=== PATIENT | male | born 1960 | race African-American/Black ===

== ENCOUNTER 2018-11-12 08:21 | Emergency (ER) | payer MEDICARE ==
[~2018-11-12] VITALS: Ht 188 cm; Wt 77.1 kg
[~2018-11-12 08:21] MED LIST: AMBIEN10 MG PO; HUMALOG100 UNIT/2 SQ; MUPIROCIN22 GM TOP; NOVOLOG MI100 UNITS/ SQ; RESTORIL15 MG PO; ULTRAM 50MG50 MG PO; Z LABETALOL HCL PO; Z MINOXIDIL PO; Z.0.LANTUS 3ML100 UN SQ; Z.0.RENVELA800 MG PO; Z.0.TEMAZEPAM15 MG PO; [UNRECOGNIZED DRUG - OTHER] PO
--- OUTSIDE RECORDS SUMMARY | 2018-11-12 08:25 | XMS REPORT ---
Author Author [facility] Address Unknown Phone Unavailable Care Team Providers Care Client Executive Name Role Phone Unavailable Unavailable Payers Payer Name Policy Type Policy Number Effective Date Expiration Date Problems This patient has no known problems. Allergies, Adverse Reactions, Alerts Allergy Name Allergy Type Status Severity Reaction(s) Onset Date Inactive Date Treating Clinician Comments No Known Allergies DA Active U 2015-12-24 00:00:00 Medications This patient has no known medications. Results Test Description Test Time Test Comments Text Results Atomic Results Result Comments COMPREHENSIVE METABOLIC PANEL 2018-08-01 13:26:00 SODIUM (test code=NA) 138 mmol/L 136-145 POTASSIUM (test code=K) 3.8 mmol/L 3.5-5.1 CHLORIDE (test code=CL) 99.0 mmol/L 98-107 CARBON DIOXIDE (test code=CO2) 31.0 mmol/L 21-32 ANION GAP (test code=GAP) 11.8 10-20 GLUCOSE (test code=GLU) 114 mg/dL 74-106 BLOOD UREA NITROGEN (test code=BUN) 26 mg/dL 7-18 GLOMERULAR FILTRATION RATE (test code=GFR) 13 mL/min >=60 Estimated GFR by using Modified MDRD formula.Chronic kidney disease is defined as either kidney damageor GFR <60 mL/min/1.73 m2 for >3 months. CREATININE (test code=CREAT) 5.50 mg/dL 0.7-1.3 BUN/CREATININE RATIO (test code=BUN/CREA) 4.7 10-20 TOTAL PROTEIN (test code=PROT) 8.3 gram/dL 6.4-8.2 ALBUMIN (test code=ALB) 3.9 g/dL 3.4-5.0 GLOBULIN (test code=GLOB) 4.4 gram/dL 2.7-4.2 ALBUMIN/GLOBULIN RATIO (test code=A/G) 0.9 0.75-1.50 CALCIUM (test code=CA) 8.6 mg/dL 8.5-10.1 BILIRUBIN TOTAL (test code=BILT) 0.50 mg/dL 0.0-1.0 SGOT/AST (test code=AST) 23 IUnit/L 15-37 SGPT/ALT (test code=ALT) 23 IUnit/L 12-78 ALKALINE PHOSPHATASE TOTAL (test code=ALKP) 162 IUnit/L 45-117 Note change in reference range due to change in reagent. [id number] 13:26:00* Test Item Value Reference Range Comments MAGNESIUM (test code=MAG) 2.5 mg/dL 1.8-2.4 COMPREHENSIVE METABOLIC [id number] 13:10:00* Test Item Value Reference Range Comments SODIUM (test code=NA) 138 mmol/L 136-145 POTASSIUM (test code=K) 3.8 mmol/L 3.5-5.1 CHLORIDE (test code=CL) 99.0 mmol/L 98-107 CARBON DIOXIDE (test code=CO2) mmol/L 21-32 ANION GAP (test code=GAP) 10-20 GLUCOSE (test code=GLU) mg/dL 74-106 BLOOD UREA NITROGEN (test code=BUN) mg/dL 7-18 GLOMERULAR FILTRATION RATE (test code=GFR) mL/min >=60 CREATININE (test code=CREAT) mg/dL 0.7-1.3 BUN/CREATININE RATIO (test code=BUN/CREA) 10-20 TOTAL PROTEIN (test code=PROT) gram/dL 6.4-8.2 ALBUMIN (test code=ALB) g/dL 3.4-5.0 GLOBULIN (test code=GLOB) gram/dL 2.7-4.2 ALBUMIN/GLOBULIN RATIO (test code=A/G) 0.75-1.50 CALCIUM (test code=CA) mg/dL 8.5-10.1 BILIRUBIN TOTAL (test code=BILT) mg/dL 0.0-1.0 SGOT/AST (test code=AST) IUnit/L 15-37 SGPT/ALT (test code=ALT) IUnit/L 12-78 ALKALINE PHOSPHATASE TOTAL (test code=ALKP) IUnit/L 45-117 [id number] 13:10:00* Test Item Value Reference Range Comments MAGNESIUM (test code=MAG) mg/dL 1.8-2.4 CBC W/AUTO [id number] 11:49:00* Test Item Value Reference Range Comments WHITE BLOOD CELL (test code=WBC) 3.3 K/mm3 4.5-12.5 RED BLOOD CELL (test code=RBC) 3.10 mill/mm3 4.0-5.8 HEMOGLOBIN (test code=HGB) 9.7 gram/dL 13.0-17.5 HEMATOCRIT (test code=HCT) 29.1 % 42.0-52.0 MEAN CELL VOLUME (test code=MCV) 93.9 fL 80-98 MEAN CELL HGB (test code=MCH) 31.3 picogram 27.0-33.0 MEAN CELL HGB CONCETRATION (test code=MCHC) 33.3 gram/dL 33.0-36.0 RED CELL DISTRIBUTION WIDTH (test code=RDW) 15.1 % 11.6-16.2 RED CELL DISTRIBUTION WIDTH SD (test code=RDW-SD) 51.7 fL 37.0-51.0 PLATELET COUNT (test code=PLT) 112 K/mm3 150-450 MEAN PLATELET VOLUME (test code=MPV) 10.4 fL 6.7-11.0 NEUTROPHIL % (test code=NT%) 48.7 % 39.0-69.0 IMMATURE GRANULOCYTE % (test code=IG%) 0.3 % 0.0-5.0 LYMPHOCYTE % (test code=LY%) 19.1 % 25.0-55.0 MONOCYTE % (test code=MO%) 16.4 % 0.0-10.0 EOSINOPHIL % (test code=EO%) 14.0 % 0.0-5.0 BASOPHIL % (test code=BA%) 1.5 % 0.0-1.0 NUCLEATED RBC % (test code=NRBC%) 0.0 % 0-0 NEUTROPHIL # (test code=NT#) 1.60 K/mm3 1.8-7.7 IMMATURE GRANULOCYTE # (test code=IG#) 0.01 x10 3/uL 0-0.03 LYMPHOCYTE # (test code=LY#) 0.63 K/mm3 1.0-5.0 MONOCYTE # (test code=MO#) 0.54 K/mm3 0-0.8 EOSINOPHIL # (test code=EO#) 0.46 K/mm3 0.0-0.5 BASOPHIL # (test code=BA#) 0.05 K/mm3 0.0-0.2 NUCLEATED RBC # (test code=NRBC#) 0.00 K/mm3 0.0-0.1 MANUAL DIFF REQUIRED (test code=MDIFF) NO
--- NOTE | 2018-11-12 09:23 | NUR ---
NASREEN IN TRIAGE FOR RE-EVAL AND DISCUSSING THE CURRENT PLAN OF CARE WITH PATIENT,VERBALIZED UNDERSTANDING. CLEAN GAUZE APPLIED TO RIGHT UPPER GUM, NO ACTIVE BLEEDING NOTED.
== END 2018-11-12 09:32 | disposition home or self-care (01) ==
LOC: ER 08:21
DX: K05.219 Aggressive periodontitis, localized, unspecified severity (principal)
CPT/HCPCS: 99283

== ENCOUNTER 2019-07-19 08:35 | Inpatient (IN) | payer MEDICARE, OTHER ==
[~2019-07-19] VITALS: Ht 162.6 cm; Wt 77.1 kg
--- OUTSIDE RECORDS SUMMARY | 2019-07-19 08:39 | XMS REPORT | Continuity of Care Document ---
Author Author [facility] t Organization [facility] Address [address] [place] [address] Phone Unavailable Care Team Providers Care Public Affairs Manager Name Role Phone NONSTAFF PCP Unavailable Payers Payer Name Policy Type Policy Number Effective Date Expiration Date Maureen hilton Medicare A & B [id number] 2005 00:00:00 C [facility] Problems This patient has no known problems. Allergies, Adverse Reactions, Alerts Allergy Name Allergy Type Status Severity Reaction(s) Onset Date Inacti ve Date Treating Clinician Comments Source No Known Allergies DA Active U 2015-12-24 00:00:00 [facility] Medications Ordered Medication Name Filled Medication Name Start Date Stop Da te Current Medication? Ordering Clinician Indication Dosage Frequency Signature (SIG) Comments Components Source Insulin Aspart (Novolog Mix 70-30 Vial) 100 Units/Ml M l Insulin Aspart (Novolog Mix 70-30 Vial) 100 Units/Ml Ml Yes As Needed as needed for High Blood Sugar [facility] Insulin Glargine (Lantus 3ML Pen) 100 Units/1 Ml Inj I nsulin Glargine (Lantus 3ML Pen) 100 Units/1 Ml Inj Yes 22 Bedtime [facility] Labetalol Hcl 300 Mg Tablet Labetalol Hcl 300 Mg Tablet Yes 300 Three Times A Day [facility] Minoxidil 10 Mg Tablet Minoxidil 10 Mg Tablet Yes 10 Three Times A Day [facility] Mupirocin 22 Gm Oint...g. Mupirocin 22 Gm Oint...g. Yes 22 Daily [facility] Nifedipine (Procardia Xl) 60 Mg Tab.osm.24 Nifedipine (Procardia Xl) 60 Mg Tab.osm.24 Yes 60 Three Times A Day [facility] Temazepam 15 Mg Capsule Temazepam 15 Mg Capsule Yes 15 Bedtime [facility] Temazepam (Restoril) 15 Mg Capsule Temazepam (Restoril) 15 Mg Capsule Yes 15 Bedtime [facility] Tramadol Hcl (Ultram 50MG*) 50 Mg Tab Tramadol Hcl (Ultram 50MG*) 5 0 Mg Tab Yes 50 Three Times A Day [facility] Zolpidem Tartrate (Ambien) 10 Mg Tablet Zolpidem Tartrate (A mbien) 10 Mg Tablet Yes 10 Bedtime [facility] Insulin Lispro (Humalog) 100 Unit/1 Ml Cartridge, 5 Un it Sub-Q Insulin Lispro (Humalog) 100 Unit/1 Ml Cartridge, 5 Unit Sub-Q 2015-03-07 00:00:00 No 5 Three Times A Day [facility] Sevelamer Carbonate (Renvela) 800 Mg Tablet, 800 Mg Or al Sevelamer Carbonate (Renvela) 800 Mg Tablet, 800 Mg Oral 2015-03-07 00:00:00 No 800 Three Times A Day [facility] Procedures This patient has no known procedures. Encounters Start Date/Time End Date/Time [facility]counter [facility] ID Source 2018-11-12 08:21:00 2018-11-12 09:32:00 Departed Emergency Room [facility] [id number] [facility] Results Test Description Test Time Test Comments Results Result Comments Source BASIC METABOLIC PANEL 2018-11-17 06:35:00 Test Item SODIUM (test code = NA) 142 mmol/L 136-145 N POTASSIUM (test code = K) 4.3 mmol/L 3.5-5.1 N CHLORIDE (test code = CL) 102.0 mmol/L 98-107 N CARBON DIOXIDE (test code = CO2) 30.0 mmol/L 21-32 N ANION GAP (test code = GAP) 14.3 10-20 N GLUCOSE (test code = GLU) 176 mg/dL 74-106 H BLOOD UREA NITROGEN (test code = BUN) 27 mg/dL 7-18 H GLOMERULAR FILTRATION RATE (test code = GFR) 12 mL/min >=60 Estimated GFR by using Modified MDRD formula.Chronic kidney disease is defined as either kidney damageor GFR <60 mL/min/1.73 m2 for >3 months. CREATININE (test code = CREAT) 6.00 mg/dL 0.7-1.3 H BUN/CREATININE RATIO (test code = BUN/CREA) 4.5 10-20 L CALCIUM (test code = CA) 8.4 mg/dL 8.5-10.1 L BASIC METABOLIC [id number] 06:33:00* Test Item Value Reference Range Interpretation Comments SODIUM (test code = NA) 142 mmol/L 136-145 N POTASSIUM (test code = K) 4.3 mmol/L 3.5-5.1 N CHLORIDE (test code = CL) 102.0 mmol/L 98-107 N CARBON DIOXIDE (test code = CO2) mmol/L 21-32 ANION GAP (test code = GAP) 10-20 GLUCOSE (test code = GLU) mg/dL 74-106 BLOOD UREA NITROGEN (test code = BUN) mg/dL 7-18 GLOMERULAR FILTRATION RATE (test code = GFR) mL/min >=60 CREATININE (test code = CREAT) mg/dL 0.7-1.3 BUN/CREATININE RATIO (test code = BUN/CREA) 10-20 CALCIUM (test code = CA) 8.4 mg/dL 8.5-10.1 L PROTHROMBIN [id number] 06:25:00* Test Item Value Reference Range Interpretation Comments PROTHROMBIN TIME PATIENT (test code = PTP) 12.7 seconds 9.0-14.0 N INTERNATIONAL NORMAL RATIO (test code = INR) 1.1 0.8-1.2 N The therapeutic range for oral anticoagulant therapy formost indications is an international normalized ratio (INR)of between 2.0 and 3.0. The recommended therapeutic INRrange for various clinical situations is listed below: Clinical Situation INR range Pulmonary e mbolism treatment (2.0-3.0)Venous thrombosis treatmentVenous thrombosis prophylaxis (high risk surgery)Prevention of systemic embolism from: Acute myocardial infarction Valvular heart disease Atrial fibrillation Mechanical prosthetic heart valves (2.5-3.5) IS PATIENT ON ANTICOAGULANTS? YLIST ANTICOAGULANTS xareltoTHROMBOPLASTIN TIME [id number] 06:25:00* Test Item Value Reference Range Interpretation Comments THROMBOPLASTIN TIME PARTIAL (test code = PTT) 43.4 seconds 25.0-36. 5 H IS PATIENT ON ANTICOAGULANTS? YLIST ANTICOAGULANTS xareltoCBC W/AUTO DIFF 2018-11-17 06:22:00* Test Item Value Reference Range Interpretation Comments WHITE BLOOD CELL (test code = WBC) 2.5 K/mm3 4.5-12.5 L RED BLOOD CELL (test code = RBC) 3.58 mill/mm3 4.0-5.8 L HEMOGLOBIN (test code = HGB) 10.9 gram/dL 13.0-17.5 L HEMATOCRIT (test code = HCT) 33.4 % 42.0-52.0 L MEAN CELL VOLUME (test code = MCV) 93.3 fL 80-98 N MEAN CELL HGB (test code = MCH) 30.4 picogram 27.0-33.0 N MEAN CELL HGB CONCETRATION (test code = MCHC) 32.6 gram/dL 33.0-36. 0 L RED CELL DISTRIBUTION WIDTH (test code = RDW) 15.9 % 11.6-16. 2 N RED CELL DISTRIBUTION WIDTH SD (test code = RDW-SD) 53.8 fL 37 .0-51.0 H PLATELET COUNT (test code = PLT) 106 K/mm3 150-450 L MEAN PLATELET VOLUME (test code = MPV) 11.1 fL 6.7-11.0 H NEUTROPHIL % (test code = NT%) 43.8 % 39.0-69.0 N IMMATURE GRANULOCYTE % (test code = IG%) 0.0 % 0.0-5.0 N LYMPHOCYTE % (test code = LY%) 26.5 % 25.0-55.0 N MONOCYTE % (test code = MO%) 19.7 % 0.0-10.0 H EOSINOPHIL % (test code = EO%) 8.0 % 0.0-5.0 H BASOPHIL % (test code = BA%) 2.0 % 0.0-1.0 H NUCLEATED RBC % (test code = NRBC%) 0.0 % 0-0 N NEUTROPHIL # (test code = NT#) 1.09 K/mm3 1.8-7.7 L IMMATURE GRANULOCYTE # (test code = IG#) 0.00 x10 3/uL 0-0.03 N LYMPHOCYTE # (test code = LY#) 0.66 K/mm3 1.0-5.0 L MONOCYTE # (test code = MO#) 0.49 K/mm3 0-0.8 N EOSINOPHIL # (test code = EO#) 0.20 K/mm3 0.0-0.5 N BASOPHIL # (test code = BA#) 0.05 K/mm3 0.0-0.2 N NUCLEATED RBC # (test code = NRBC#) 0.00 K/mm3 0.0-0.1 N MANUAL DIFF REQUIRED (test code = MDIFF) NO COMPREHENSIVE METABOLIC [id number] 13:26:00* Test Item Value Reference Range Interpretation Comments SODIUM (test code = NA) 138 mmol/L 136-145 N POTASSIUM (test code = K) 3.8 mmol/L 3.5-5.1 N CHLORIDE (test code = CL) 99.0 mmol/L 98-107 N CARBON DIOXIDE (test code = CO2) 31.0 mmol/L 21-32 N ANION GAP (test code = GAP) 11.8 10-20 N GLUCOSE (test code = GLU) 114 mg/dL 74-106 H BLOOD UREA NITROGEN (test code = BUN) 26 mg/dL 7-18 H GLOMERULAR FILTRATION RATE (test code = GFR) 13 mL/min >=60 Estimated GFR by using Modified MDRD formula.Chronic kidney disease is defined as either kidney damageor GFR <60 mL/min/1.73 m2 for >3 months. CREATININE (test code = CREAT) 5.50 mg/dL 0.7-1.3 H BUN/CREATININE RATIO (test code = BUN/CREA) 4.7 10-20 L TOTAL PROTEIN (test code = PROT) 8.3 gram/dL 6.4-8.2 H ALBUMIN (test code = ALB) 3.9 g/dL 3.4-5.0 N GLOBULIN (test code = GLOB) 4.4 gram/dL 2.7-4.2 H ALBUMIN/GLOBULIN RATIO (test code = A/G) 0.9 0.75-1.50 N CALCIUM (test code = CA) 8.6 mg/dL 8.5-10.1 N BILIRUBIN TOTAL (test code = BILT) 0.50 mg/dL 0.0-1.0 N SGOT/AST (test code = AST) 23 IUnit/L 15-37 N SGPT/ALT (test code = ALT) 23 IUnit/L 12-78 N ALKALINE PHOSPHATASE TOTAL (test code = ALKP) 162 IUnit/L 45-117 H Note change in reference range due to change in reagent. [id number] 13:26:00* Test Item Value Reference Range Interpretation Comments MAGNESIUM (test code = MAG) 2.5 mg/dL 1.8-2.4 H COMPREHENSIVE METABOLIC [id number] 13:10:00* Test Item Value Reference Range Interpretation Comments SODIUM (test code = NA) 138 mmol/L 136-145 N POTASSIUM (test code = K) 3.8 mmol/L 3.5-5.1 N CHLORIDE (test code = CL) 99.0 mmol/L 98-107 N CARBON DIOXIDE (test code = CO2) mmol/L 21-32 ANION GAP (test code = GAP) 10-20 GLUCOSE (test code = GLU) mg/dL 74-106 BLOOD UREA NITROGEN (test code = BUN) mg/dL 7-18 GLOMERULAR FILTRATION RATE (test code = GFR) mL/min >=60 CREATININE (test code = CREAT) mg/dL 0.7-1.3 BUN/CREATININE RATIO (test code = BUN/CREA) 10-20 TOTAL PROTEIN (test code = PROT) gram/dL 6.4-8.2 ALBUMIN (test code = ALB) g/dL 3.4-5.0 GLOBULIN (test code = GLOB) gram/dL 2.7-4.2 ALBUMIN/GLOBULIN RATIO (test code = A/G) 0.75-1.50 CALCIUM (test code = CA) mg/dL 8.5-10.1 BILIRUBIN TOTAL (test code = BILT) mg/dL 0.0-1.0 SGOT/AST (test code = AST) IUnit/L 15-37 SGPT/ALT (test code = ALT) IUnit/L 12-78 ALKALINE PHOSPHATASE TOTAL (test code = ALKP) IUnit/L 45-117 [id number] 13:10:00* Test Item Value Reference Range Interpretation Comments MAGNESIUM (test code = MAG) mg/dL 1.8-2.4 CBC W/AUTO [id number] 11:49:00* Test Item Value Reference Range Interpretation Comments WHITE BLOOD CELL (test code = WBC) 3.3 K/mm3 4.5-12.5 L RED BLOOD CELL (test code = RBC) 3.10 mill/mm3 4.0-5.8 L HEMOGLOBIN (test code = HGB) 9.7 gram/dL 13.0-17.5 L HEMATOCRIT (test code = HCT) 29.1 % 42.0-52.0 L MEAN CELL VOLUME (test code = MCV) 93.9 fL 80-98 N MEAN CELL HGB (test code = MCH) 31.3 picogram 27.0-33.0 N MEAN CELL HGB CONCETRATION (test code = MCHC) 33.3 gram/dL 33.0-36. 0 N RED CELL DISTRIBUTION WIDTH (test code = RDW) 15.1 % 11.6-16. 2 N RED CELL DISTRIBUTION WIDTH SD (test code = RDW-SD) 51.7 fL 37 .0-51.0 H PLATELET COUNT (test code = PLT) 112 K/mm3 150-450 L MEAN PLATELET VOLUME (test code = MPV) 10.4 fL 6.7-11.0 N NEUTROPHIL % (test code = NT%) 48.7 % 39.0-69.0 N IMMATURE GRANULOCYTE % (test code = IG%) 0.3 % 0.0-5.0 N LYMPHOCYTE % (test code = LY%) 19.1 % 25.0-55.0 L MONOCYTE % (test code = MO%) 16.4 % 0.0-10.0 H EOSINOPHIL % (test code = EO%) 14.0 % 0.0-5.0 H BASOPHIL % (test code = BA%) 1.5 % 0.0-1.0 H NUCLEATED RBC % (test code = NRBC%) 0.0 % 0-0 N NEUTROPHIL # (test code = NT#) 1.60 K/mm3 1.8-7.7 L IMMATURE GRANULOCYTE # (test code = IG#) 0.01 x10 3/uL 0-0.03 N LYMPHOCYTE # (test code = LY#) 0.63 K/mm3 1.0-5.0 L MONOCYTE # (test code = MO#) 0.54 K/mm3 0-0.8 N EOSINOPHIL # (test code = EO#) 0.46 K/mm3 0.0-0.5 N BASOPHIL # (test code = BA#) 0.05 K/mm3 0.0-0.2 N NUCLEATED RBC # (test code = NRBC#) 0.00 K/mm3 0.0-0.1 N MANUAL DIFF REQUIRED (test code = MDIFF) NO
--- NOTE | 2019-07-19 09:00 | Emergency Department Note ---
History of Present Illnes History of Present Illness Chief Complaint: Abdominal Complaints History of Present Illness This is a 59 year old male arrives to the ED with complaints of bright red blood per rectum. Patient states his hemoglobin dropped from 7.7 early in June to 7.0 noted on July 05. Patient states his PCP told him to come to the emergency department for further workup and management. Patient states he has a history of a lower GI bleed in 2007 for which she got a blood transfusion 4. Patient does admit to mild left lower quadrant abdominal pain. Patient is on hemodialysis secondary to ESRD, Tuesday and Tuesday. Patient's last colonoscopy was in . Historian: Patient Arrival Mode: Car Computer Hardware Developer Required: No Onset (how long ago): week(s) Radiation: non-radiation Severity: mild Onset quality: gradual Duration (how long): week(s) Timing of current episode: constant Progression: worsening Chronicity: recurrent Relieving factors: none Past Medical/Family History Physician Review I have reviewed the patient's past medical and family history. Any updates have been documented here. 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 Social History Smoking Cessation: Never Smoker Alcohol Use: None Any Illegal Drug Use: No TB Exposure/Symptoms: No Physically hurt or threatened: No Family History Family history of heart diseas: Yes Other Last Tetanus: UNKNOWN Any Pre-Existing Lines (PICC,: Yes Is patient up to date on immun: Yes Review of Systems Review of Systems Constitutional: no symptoms EENTM: no symptoms Cardiovascular: no symptoms Respiratory: no symptoms Gastrointestinal: as per HPI, abdominal pain Genitourinary: no symptoms Musculoskeletal: no symptoms Neurological: as per HPI Psychological: no symptoms Endocrine: no symptoms Hematological/Lymphatic: no symptoms Review of other systems All other systems reviewed and negative. Physical Exam Related Data Allergies: Coded Allergies: No Known Allergies (Unverified , 07/30/11) Triage Vital Signs Vital Signs Date Time Temp Pulse Resp B/P (MAP) Pulse Ox O2 Delivery O2 Flow Rate FiO2 07/19/19 08:46 98.4 71 16 137/66 95 Vital signs reviewed: Yes Physical Exam CONSTITUTIONAL Constitutional: well-developed, well-nourished, obese, other (inhaled, dry mucosa) HENT HENT: normocephalic, atraumatic, nose normal HENT L/R: left ext ear normal, right ext ear normal EYES Eyes: PERRL, conjunctivae normal NECK Neck: ROM normal PULMONARY Pulmonary: effort normal, breath sounds normal CARDIOVASCULAR Cardiovascular: regular rhythm, heart sounds normal, capillary refill normal, normal rate GASTROINTESTINAL Abdominal: soft, nontender, bowel sounds normal, other (mild left lower quadrant tenderness) GENITOURINARY Genitourinary: exam deferred SKIN Skin: warm, dry MUSCULOSKELETAL Musculoskeletal: ROM normal NEUROLOGICAL Neurological: alert, oriented x 3, no gross motor or sensory deficits PSYCHOLOGICAL Psychological: mood/affect normal, judgement normal Critical Care Time Subsequent provider I assumed direction of critical care for this patient from another provider of my specialty. Assessment & Plan Reassessment Reassessment 59-year-old male that we do generalized malaise and weakness. Noted to have a drop in hemoglobin, history of bright red blood per rectum. Patient hospital admission for further workup of a lower GI bleed. Assessment & Plan Final Impression: (1) LEFT SIDED COLITIS WITH RECTAL BLEEDING Assessment & Plan cbc, cmp serial Hb/Hct GI Consult Depart Disposition: ADMITTED Last Vital Signs Date Time Temp Pulse Resp B/P (MAP) Pulse Ox O2 Delivery O2 Flow Rate FiO2 07/19/19 08:46 98.4 71 16 137/66 95 Home Meds Reported Medications Insulin Aspart (NOVOLOG MIX 70-30 VIAL) 100 Units/Ml Ml, SQ PRN PRN for HIGH BLOOD SUGAR 03/07/15 Tramadol Hcl* (ULTRAM 50MG*) 50 Mg Tab, 50 MG PO TID, TAB 03/07/15 Temazepam (RESTORIL) 15 Mg Capsule, 15 MG PO HS, #30 TAB 03/07/15 Mupirocin (MUPIROCIN) 22 Gm Oint...g., 22 GM TOP DAILY, EACH 03/07/15 Zolpidem Tartrate (AMBIEN) 10 Mg Tablet, 10 MG PO HS, TAB 03/07/15 Temazepam (Temazepam) 15 Mg Capsule, 15 MG PO BEDTIME 07/30/11 Insulin Glargine (Lantus 3ML Pen) 100 Units/1 Ml Inj, 22 UNITS SQ BEDTIME 07/30/11 Nifedipine (Procardia Xl) 60 Mg Tab.osm.24, 60 MG PO TID 07/30/11 Labetalol Hcl (Labetalol Hcl) 300 Mg Tablet, 300 MG PO TID 07/30/11 Minoxidil (Minoxidil) 10 Mg Tablet, 10 MG PO TID 07/30/11 MAURISIO THOMAS, Jul 19, 2019 09:00
--- NOTE | 2019-07-19 09:10 | NUR ---
blood to lab;blood bank/banded; covid done
[2019-07-19 09:32] LABS: BASOPHILS % 1.4 % (0.0-1.0); EOSINOPHILS # (AUTO) 0.1 (0.0-0.4); EOSINOPHILS % 4.2 % (0.0-6.0); HEMATOCRIT 26.4 % (38.2-49.6); HEMOGLOBIN 8.5 g/dL (14.0-18.0); LYMPHOCYTES # (AUTO) 0.6 (1.0-3.2); LYMPHOCYTES % 19.8 % (18.0-39.1); MEAN CORPUSCULAR HGB CONC 32.2 g/dL (31-35); MEAN CORPUSCULAR VOLUME 99.2 fL (81-99); MONOCYTES # (AUTO) 0.6 (0.2-0.8); MONOCYTES % 22.3 % (4.4-11.3); NEUTROPHILS # (AUTO) 1.5 (2.1-6.9); NEUTROPHILS % 51.9 % (38.7-80.0); PLATELET COUNT 129 x10e3/uL (140-360); RED BLOOD COUNT 2.66 x10e6/uL (4.3-5.7); RED CELL DISTRIBUTION WIDTH 16.3 % (11.7-14.4)
[2019-07-19 09:55] LABS: ALBUMIN 3.7 g/dL (3.5-5.0); ANION GAP 18.7 mmol/L (8-16); CALCIUM 9.3 mg/dL (8.4-10.2); CREATININE, SERUM 10.64 mg/dL (0.72-1.25); POTASSIUM 4.7 mmol/L (3.5-5.1)
[2019-07-19 09:56] LABS: INR 0.96; PROTHROMBIN TIME 13.3 seconds (11.9-14.5)
[2019-07-19 10:20] LABS: CREATINE KINASE MB 2.4 ng/mL (0-5.0)
--- OUTSIDE RECORDS SUMMARY | 2019-07-19 12:34 | XMS REPORT | Continuity of Care Document ---
Author Author [facility] t Organization [facility] Address [address] [place] [address] Phone Unavailable Care Team Providers Care Manager Cafe Name Role Phone NONSTAFF PCP Unavailable Payers Payer Name Policy Type Policy Number Effective Date Expiration Date Maureen hilton Medicare A & B [id number] 2005 00:00:00 [facility] Problems This patient has no known problems. Allergies, Adverse Reactions, Alerts Allergy Name Allergy Type Status Severity Reaction(s) Onset Date Inacti ve Date Treating Clinician Comments Source No Known Allergies DA Active U 2015-12-24 00:00:00 [facility] Medications Ordered Medication Name Filled Medication Name Start Date Stop Da te Current Medication? Ordering Clinician Indication Dosage Frequency Signature (SIG) Comments Components Source Insulin Aspart (Novolog Mix 70-30 Vial) 100 Units/Ml M l Insulin Aspart (Novolog Mix 70-30 Vial) 100 Units/Ml Ml Yes As Needed as needed for High Blood Sugar [facility] Insulin Glargine (Lantus 3ML Pen) 100 Units/1 Ml Inj I nsulin Glargine (Lantus 3ML Pen) 100 Units/1 Ml Inj Yes 22 Bedtime [facility] Labetalol Hcl 300 Mg Tablet Labetalol Hcl 300 Mg Tablet Yes 300 Three Times A Day [facility] Minoxidil 10 Mg Tablet Minoxidil 10 Mg Tablet Yes 10 Three Times A Day [facility] Mupirocin 22 Gm Oint...g. Mupirocin 22 Gm Oint...g. Yes 22 Daily [facility] Nifedipine (Procardia Xl) 60 Mg Tab.osm.24 Nifedipine (Procardia Xl) 60 Mg Tab.osm.24 Yes 60 Three Times A Day [facility] Temazepam 15 Mg Capsule Temazepam 15 Mg Capsule Yes 15 Bedtime [facility] Temazepam (Restoril) 15 Mg Capsule Temazepam (Restoril) 15 Mg Capsule Yes 15 Bedtime [facility] Tramadol Hcl (Ultram 50MG*) 50 Mg Tab Tramadol Hcl (Ultram 50MG*) 5 0 Mg Tab Yes 50 Three Times A Day [facility] Zolpidem Tartrate (Ambien) 10 Mg Tablet Zolpidem Tartrate (A mbien) 10 Mg Tablet Yes 10 Bedtime [facility] Insulin Lispro (Humalog) 100 Unit/1 Ml Cartridge, 5 Un it Sub-Q Insulin Lispro (Humalog) 100 Unit/1 Ml Cartridge, 5 Unit Sub-Q 2015-03-07 00:00:00 No 5 Three Times A Day [facility] Sevelamer Carbonate (Renvela) 800 Mg Tablet, 800 Mg Or al Sevelamer Carbonate (Renvela) 800 Mg Tablet, 800 Mg Oral 2015-03-07 00:00:00 No 800 Three Times A Day [facility] Procedures This patient has no known procedures. Encounters Start Date/Time End Date/Time [facility] ID Source 2018-11-12 08:21:00 2018-11-12 09:32:00 Departed Emergency Room [facility] [id number] [facility] Results Test Description Test Time Test Comments [...] CA) 8.4 mg/dL 8.5-10.1 L BASIC METABOLIC [id number] 06:33:00* Test Item Value Reference Range Interpretation [...] = CA) 8.4 mg/dL 8.5-10.1 L PROTHROMBIN [id number] 06:25:00* Test Item Value Reference Range Interpretation [...] PATIENT ON ANTICOAGULANTS? YLIST ANTICOAGULANTS xareltoTHROMBOPLASTIN TIME [id number] 06:25:00* Test Item Value Reference Range Interpretation [...] (test code = MDIFF) NO COMPREHENSIVE METABOLIC [id number] 13:26:00* Test Item Value Reference Range Interpretation [...] reference range due to change in reagent. [id number] 13:26:00* Test Item Value Reference Range Interpretation Comments MAGNESIUM (test code = MAG) 2.5 mg/dL 1.8-2.4 H COMPREHENSIVE METABOLIC [id number] 13:10:00* Test Item Value Reference Range Interpretation [...] TOTAL (test code = ALKP) IUnit/L 45-117 [id number] 13:10:00* Test Item Value Reference Range Interpretation Comments MAGNESIUM (test code = MAG) mg/dL 1.8-2.4 CBC W/AUTO [id number] 11:49:00* Test Item Value Reference Range Interpretation [...]
--- NOTE | 2019-07-19 13:35 | NUR ---
RED PT FROM ER BY BED PT IS ALERT AND ORIENTED VITALS CHECKED PT RESTING ON BED ,ADMISSION ASSESSMENT AND HISTORY DONE IV PATIENT BY SALINE FLUSH INSTRUCTED THE PT REGARDING HOSPITAL POLICY AND ROUTINE INCLUDING VISITOR POLICY BED LOW AND LOCKED CALL LIGHT IN REACH
[2019-07-19] MEDS ORDERED: DEXTROSE 50% SYRINGE 50 ML IV PRN (15:00)
[2019-07-19] MEDS ORDERED: ACETAMINOPHEN 325 MG TAB PO PRN (15:15)
[2019-07-19] MEDS ORDERED: ONDANSETRON HCL INJ 2MG/ML 2ML 2 MG/ML VIAL IV PRN (15:15)
[2019-07-19] MEDS ORDERED: HYDRALAZINE HCL 20 MG/ML VIAL IV PRN (15:15)
[2019-07-19 15:39] VITALS: BP 152/76
[2019-07-19] MEDS: TRAMADOL HCL 50 MG TAB PO SCH ×3 (15:45→20:28)
[2019-07-19] MEDS: LABETALOL HCL 100 MG TAB PO SCH ×2 (16:00→20:27)
[2019-07-19] MEDS: MINOXIDIL 2.5 MG TAB PO SCH ×2 (16:00→20:27)
[2019-07-19 16:27] VITALS: BP 152/76
[2019-07-19] MEDS: INSULIN LISPRO 100 UNIT/1 ML 3ML VIAL SQ SCH ×2 (16:30→20:35)
[2019-07-19 16:33] VITALS: BP 152/76
--- NOTE | 2019-07-19 16:48 | NUR ---
PT PR SPECIALIST IS JYOTI RENNER AC TO DR ELY CHANGE THE CONSULTATION TO DR CASAS GROUP NOTIFIED CHEMA JEROME GOT THE ORDER TO CHANGE THE DOCTOR
[2019-07-19] MEDS: NIFEDIPINE CR 30 MG TAB PO SCH (17:00)
--- NOTE | 2019-07-19 17:00 | NUR ---
PT WENT TO PROCEDURE IN SAFE CONDITION
--- NOTE | 2019-07-19 18:04 | NUR ---
Radha notified- called and spoke to Shasha at
--- NOTE | 2019-07-19 18:51 | NUR ---
PT RESTING ON BED BED SIDE REPORT GIVEN TO DORCAS NURSE Addendum: 07/19/19 at 1917 by Citlali Deluna RN WRONG PT
--- NOTE | 2019-07-19 19:17 | NUR ---
PT STILL IN PROCEDURE REPORT GIVEN TO ONCOMING NURSE
[2019-07-19 20:08] VITALS: BP 155/70
--- NOTE | 2019-07-19 20:20 | NUR ---
Patient back to room s/p GI bleed scan. Patient is awake, not in distress, call light within easy reach, advised to call anytime when needed, will continue to monitor. Will medicate patient for pain
--- NOTE | 2019-07-19 20:24 | Diagnostic Imaging Report ---
Tagged-RBC GI Bleed Study Clinical information: 59-year-old sultana with blood in stool. Discussion: The patient's own red blood cells were labeled with 18 mCi of technetium-99m pertechnetate using the in vitro method (UltraTag). Dynamic images of the abdomen were obtained through 60 minutes. Distribution of tracer activity appears physiologic throughout the abdomen. No abnormal accumulation of tracer is seen within the gastrointestinal lumen. Impression: No scan evidence of active gastrointestinal bleeding at this time. Signed by: Dr. Peggy Borjas M.D. on 07/19/2019 8:20 PM
--- NOTE | 2019-07-19 20:34 | Diagnostic Imaging Report ---
EXAM: CT Abdomen and Pelvis WITHOUT contrast INDICATION: Left-sided colitis. Abdominal pain. COMPARISON: None. TECHNIQUE: Abdomen and pelvis were scanned utilizing a multidetector helical scanner from the lung base to the pubic symphysis without administration of IV contrast. Absence of intravenous contrast decreases sensitivity for detection of focal lesions and vascular pathology. Coronal and sagittal reformations were obtained. Routine protocol was performed. IV CONTRAST: None. ORAL CONTRAST: Water RADIATION DOSE: Total DLP: 455.27 mGy*cm Estimated effective dose: (DLP x 0.015 x size factor) mSv COMPLICATIONS: None FINDINGS: LINES and TUBES: None. LOWER THORAX: Left basilar linear atelectasis. Coronary artery calcifications. HEPATOBILIARY: No focal hepatic lesions. No biliary ductal dilation. GALLBLADDER: There are cholecystectomy clips. SPLEEN: No splenomegaly. PANCREAS: No focal masses or ductal dilatation. ADRENALS: No adrenal nodules KIDNEYS/URETERS: No hydronephrosis. The kidneys are replaced by numerous variously-sized low-attenuation lesion consistent with cysts. There are also a few high attenuation lesions which cannot be further characterized due to lack of contrast, the largest in the posterior medial interpolar region of the left kidney measuring 1.8 cm on image 28 series 2, possibly hyperdense cyst. There are a few punctate nonobstructing calculi versus vascular constipation scattered throughout the left kidney. In addition, there is a lesion with peripheral calcifications measuring 1.2 cm in the anterior interpolar region of the left kidney on image 30. GI TRACT: No abnormal distention, or evidence of bowel obstruction. Mild wall thickening of the rectum is nonspecific, likely related to under distention. Appendix is normal. PELVIC ORGANS/BLADDER: Unremarkable. LYMPH NODES: No lymphadenopathy. VESSELS: There is mild atherosclerotic disease in the aorta and major arterial branches. PERITONEUM / RETROPERITONEUM: No free air or fluid. BONES: Slightly increased density of the vertebral bodies is nonspecific finding, however, could reflect mild renal osteodystrophy. SOFT TISSUES: Unremarkable. IMPRESSION: 1. Allowing for limitations of the lack of intravenous and oral contrast, no evidence of bowel obstruction or significant colitis. Mild wall thickening of the distal rectum is a nonspecific finding and may be related to underdistention. 2. Polycystic kidneys. Signed by: Dr. Yoan Chavez M.D. on 07/19/2019 8:31 PM
[2019-07-19 21:00] VITALS: BP 155/70
[2019-07-19] MEDS ORDERED: ZOLPIDEM TARTRATE 10 MG TAB PO SCH (21:00)
[2019-07-20] VITALS (7 sets, daily range): BP systolic 109–137; BP diastolic 52–65
[2019-07-20 06:53] LABS: BASOPHILS % 1.2 % (0.0-1.0); EOSINOPHILS # (AUTO) 0.2 (0.0-0.4); EOSINOPHILS % 5.2 % (0.0-6.0); HEMATOCRIT 23.6 % (38.2-49.6); HEMOGLOBIN 7.6 g/dL (14.0-18.0); LYMPHOCYTES # (AUTO) 0.8 (1.0-3.2); LYMPHOCYTES % 24.2 % (18.0-39.1); MEAN CORPUSCULAR HEMOGLOBIN 32.6 pg (28-32); MEAN CORPUSCULAR HGB CONC 32.2 g/dL (31-35); MEAN CORPUSCULAR VOLUME 101.3 fL (81-99); MONOCYTES # (AUTO) 0.7 (0.2-0.8); MONOCYTES % 21.2 % (4.4-11.3); NEUTROPHILS # (AUTO) 1.6 (2.1-6.9); NEUTROPHILS % 47.9 % (38.7-80.0); PLATELET COUNT 110 x10e3/uL (140-360); RED BLOOD COUNT 2.33 x10e6/uL (4.3-5.7); RED CELL DISTRIBUTION WIDTH 16.5 % (11.7-14.4)
--- NOTE | 2019-07-20 07:10 | NUR ---
RCD PT AT BED PT IS ALERT AND ORIENTED RESTING ON BED IV PATENT BY SALINE FLUSH BED LOW AND LOCKED CALL LIGHT IN REACH
[2019-07-20 07:15] LABS: ALBUMIN 3.2 g/dL (3.5-5.0); ANION GAP 18.4 mmol/L (8-16); CALCIUM 8.8 mg/dL (8.4-10.2); CREATININE, SERUM 12.34 mg/dL (0.72-1.25); POTASSIUM 4.4 mmol/L (3.5-5.1)
[2019-07-20] MEDS: PANTOPRAZOLE SOD 40 MG TABEC PO SCH (07:30)
[2019-07-20] MEDS: INSULIN LISPRO 100 UNIT/1 ML 3ML VIAL SQ SCH ×4 (07:30→21:00)
[2019-07-20 07:49] LABS: FERRITIN 577.18 ng/mL (21.81-274.66)
[2019-07-20] MEDS ORDERED: SODIUM CHLORIDE 0.9% 1000ML 2,000 ML ONE (08:56)
[2019-07-20] MEDS: TRAMADOL HCL 50 MG TAB PO SCH ×3 (09:00→22:29)
[2019-07-20] MEDS: MINOXIDIL 2.5 MG TAB PO SCH ×3 (09:00→21:00)
[2019-07-20] MEDS: LABETALOL HCL 100 MG TAB PO SCH (09:00)
[2019-07-20] MEDS: NIFEDIPINE CR 30 MG TAB PO SCH (09:00)
[2019-07-20] MEDS ORDERED: ALBUMIN 25% 12.5GM 0.25 GM/ML BTL IV PRN (09:15)
[2019-07-20] MEDS ORDERED: SODIUM CHLORIDE 0.9% 250ML 250 ML IV ONE (09:15)
[2019-07-20] MEDS ORDERED: SODIUM CHLORIDE 0.9% 1000ML 2,000 ML IV PRN (09:15)
[2019-07-20] MEDS ORDERED: MANNITOL 25% 12.5GM/50 ML VIAL IV PRN (09:15)
[2019-07-20] MEDS ORDERED: SODIUM CHLORIDE 0.9% 250ML 500 ML IV PRN (09:15)
[2019-07-20] MEDS ORDERED: PEG (High)/E-LYTE SOLN 4,000 ML BTL PO SCH (12:00)
--- NOTE | 2019-07-20 14:00 | NUR ---
dialysis done and removed 2 ltrs
[2019-07-20] MEDS ORDERED: XARELTO20 MG PO (18:18)
[2019-07-20] MEDS ORDERED: BYSTOLIC10 MG PO (18:18)
--- NOTE | 2019-07-20 18:41 | NUR ---
PT RESTING ON BED BED SIDE REPORT GIVEN TO ONCOMING NURSE
--- NOTE | 2019-07-20 20:16 | Consultation ---
DATE OF CONSULTATION: 07/20/2019 HISTORY OF PRESENT ILLNESS: A 59-year-old gentleman, very well known to me from prior. He has been a long-term dialysis patient of ours, currently switched to home dialysis and today is his dialysis day. He came in with suspicion of GI bleed, weakness, frequent falls. He is awake, alert, and oriented x3 right now, in no apparent distress. Denies any shortness of breath, nausea, or fever. Apparently he tells me that his visiting nurse, who comes to visit him, tested his stool and they states he is tested positive for blood. Nevertheless, hemoglobin yesterday dropped from 8.5 to 7.6 today. White count is 3.2. He is otherwise comfortable, resting, no apparent distress. Chemistries done yesterday, potassium 4.4. REVIEW OF SYSTEMS: Negative for nausea, vomiting, abdominal pain, hematemesis, or melena. Denies any shortness of breath. ALLERGIES: NO APPARENT DRUG ALLERGIES. CURRENT MEDICATIONS: The patient is on Tylenol p.r.n., hydralazine p.r.n., labetalol 300 mg p.o. t.i.d., pantoprazole, tramadol p.r.n., Zoloft, Ambien, minoxidil 10 mg 3 times a day, and Humalog insulin. SOCIAL HISTORY: The patient is . Does not smoke or drink. was on dialysis as well. PHYSICAL EXAMINATION: VITAL SIGNS: Blood pressure is 116/56, pulse rate 75, afebrile, oxygen saturation 99%. HEAD AND NECK: Cornea clear. Oral mucosa moist. Neck veins are slightly distended. LUNGS: Bibasilar rales. HEART: S1 and S2 audible. ABDOMEN: Soft and nontender. No visceromegaly. EXTREMITIES: Lower extremity, no edema. IMPRESSION AND PLAN: Anemia, likely gastrointestinal bleed, end-stage renal disease. Plan on hemodialysis, transfusion of packed RBCs. Dr. Shaw Zarco consulted. Await his input. Blood pressure appears controlled. Please see orders. MD ORALIA Gilmore/DANIEL /[id number]
--- NOTE | 2019-07-20 21:35 | NUR ---
Received nursing shift report from charge nurse. Pt alert and oriented. Call light within reach.
[2019-07-20] MEDS ORDERED: ZOLPIDEM TARTRATE 10 MG TAB PO ONE (22:30)
[2019-07-21] VITALS (7 sets, daily range): BP systolic 121–142; BP diastolic 64–70
[2019-07-21] MEDS ORDERED: CITRATE OF MAGNESIA 300ML BOTTLE PO ONE (03:00)
[2019-07-21] MEDS ORDERED: BISACODYL 5 MG TAB EC PO ONE ×2 (03:00→04:15)
--- NOTE | 2019-07-21 03:00 | NUR ---
Rounds completed with Dr. Elvin Zarco, ordered Mag Citrate x1, Dulcolax x1 now, then x1 for prep for colonoscopy/EGD at 0800.
--- NOTE | 2019-07-21 03:33 | NUR ---
Stool collected for occult test.
[2019-07-21 06:23] LABS: BASOPHILS % 1.3 % (0.0-1.0); EOSINOPHILS # (AUTO) 0.2 (0.0-0.4); EOSINOPHILS % 5.6 % (0.0-6.0); HEMATOCRIT 30.8 % (38.2-49.6); HEMOGLOBIN 9.8 g/dL (14.0-18.0); LYMPHOCYTES # (AUTO) 0.6 (1.0-3.2); MEAN CORPUSCULAR HEMOGLOBIN 31.2 pg (28-32); MEAN CORPUSCULAR HGB CONC 31.8 g/dL (31-35); MEAN CORPUSCULAR VOLUME 98.1 fL (81-99); MONOCYTES # (AUTO) 0.7 (0.2-0.8); MONOCYTES % 22.6 % (4.4-11.3); NEUTROPHILS # (AUTO) 1.5 (2.1-6.9); NEUTROPHILS % 49.2 % (38.7-80.0); PLATELET COUNT 110 x10e3/uL (140-360); RED BLOOD COUNT 3.14 x10e6/uL (4.3-5.7); RED CELL DISTRIBUTION WIDTH 18.3 % (11.7-14.4)
--- NOTE | 2019-07-21 06:41 | NUR ---
Pt right side lying in bed. No acute distress noted.
[2019-07-21 06:59] LABS: ALBUMIN 3.4 g/dL (3.5-5.0); ANION GAP 18.5 mmol/L (8-16); CALCIUM 9.5 mg/dL (8.4-10.2); CREATININE, SERUM 7.52 mg/dL (0.72-1.25); POTASSIUM 4.5 mmol/L (3.5-5.1)
[2019-07-21 07:00] LABS: ALBUMIN/GLOBULIN RATIO 0.9 (0.8-2.0)
--- NOTE | 2019-07-21 07:05 | NUR ---
change of shift report received from mini shifter nurse. pt awake, alert, ambulating to the bathroom. pt c/o nausea. will medicate.
[2019-07-21] MEDS: PANTOPRAZOLE SOD 40 MG TABEC PO SCH (07:30)
[2019-07-21] MEDS: INSULIN LISPRO 100 UNIT/1 ML 3ML VIAL SQ SCH ×2 (07:30→11:30)
--- NOTE | 2019-07-21 08:45 | NUR ---
pt leaving the floor to go for procedure. pt awake, alert, oriented, no signs of distress, left in stable condition.
[2019-07-21] MEDS: TRAMADOL HCL 50 MG TAB PO SCH (08:51)
[2019-07-21] MEDS: MINOXIDIL 2.5 MG TAB PO SCH (08:51)
[2019-07-21] MEDS ORDERED: NEBIVOLOL 10 MG TAB PO SCH (09:00)
[2019-07-21] MEDS ORDERED: IRON-VITAMIN-MINERAL CAPSULE PO SCH (09:00)
--- NOTE | 2019-07-21 10:44 | NUR ---
received report from PACU; pt had colonoscopy and EGD. Grade 1 varices, gastritis, possible early cirrhosis, and internal hemorrhoids noted per MD. 1 polyp removed from colon. O2 sats on RA 97%.
[2019-07-21] MEDS ORDERED: PANTOPRAZOLE SO40 MG PO (10:49)
[2019-07-21] MEDS ORDERED: FEROCON CAPSUL1 EACH PO (10:49)
--- NOTE | 2019-07-21 10:58 | Operative Report ---
DATE OF PROCEDURE: 07/21/2019 SURGEON: Shaw Zarco MD PROCEDURE: An EGD with biopsies and colonoscopy with polypectomy. INDICATIONS FOR EGD: Anemia, low serum iron, history of melena. INDICATIONS FOR COLONOSCOPY: Anemia, history of bright red blood per rectum. MEDICATIONS: The patient was done under MAC. Please see anesthesiologist's note. PROCEDURE IN DETAIL: With the patient in left lateral decubitus position, a flexible fiberoptic Olympus gastroscope was introduced into the esophagus under direct visualization without any difficulty. There were grade 1 esophageal varices versus prominent subepithelial veins without active bleeding or stigmata of recent hemorrhage. The scope was then advanced with ease into the stomach. Mucosa overlying the antrum and the body revealed some diffuse erythema and low-grade to moderate edema, and biopsies were obtained and sent to stain for H pylori. Pylorus was of normal contour and shape, was intubated with ease and the scope was advanced all the way to the second portion of the duodenum. The scope was then withdrawn slowly. Biopsies were obtained from the proximal second portion and the duodenal bulb to rule out sprue. The scope was then withdrawn back into the stomach and retroflexed and mucosa overlying the fundus revealed similar inflammatory findings as in the rest of the stomach. The cardia appeared to be within normal limits. The scope was then straightened out. It was subsequently withdrawn. The patient tolerated the procedure well. IMPRESSION: 1. Mild distal esophagitis. 2. ? grade 1 esophageal varices. 3. Gastritis, biopsied. Biopsies sent to stain for Helicobacter pylori. 4. Rule out sprue. PLAN: Follow up histology. Initiate Protonix 40 mg one p.o. q.a.m. a.c. we will obtain if it has not been done an ultrasound of the liver, possibly a liver-spleen scan to check for cirrhosis. PROCEDURE IN DETAIL: The patient was then turned around after adequate lubrication of the anal canal. A flexible fiberoptic Olympus colonoscope was inserted into the rectum with ease and advanced all the way to the cecum. The cecum was not optimally visualized due to excessive looping of the scope in the left colon, but whatever was visualized of the cecum appeared to be within normal limits. The scope was then withdrawn slowly. Mucosa overlying the ascending, the transverse and descending appeared to be within normal limits. One polyp was removed per hot snare polypectomy from the sigmoid colon. The rectum grossly appeared to be within normal limits. The scope was then retroflexed into the distal rectum and moderate size internal hemorrhoids were noted, none of which was actively bleeding. The scope was then straightened out. It was subsequently withdrawn. The patient tolerated the procedure well. IMPRESSION: 1. Cecum suboptimally visualized due to excessive looping of scope in left colon. 2. Sigmoid colon polyp approximately 5 mm in size, removed per hot snare polypectomy. 3. Internal hemorrhoids, none actively bleeding. PLAN: Followup histology. The patient will need a small bowel series and possibly a capsule endoscopy to rule out small bowel pathology. We will need eventually an air-contrast barium enema to optimally visualize the cecum. Shaw Zarco MD [facility]/BRADENL /[id number] cc: Aric Carmona MD
--- NOTE | 2019-07-21 12:33 | Diagnostic Imaging Report ---
EXAM: Right upper quadrant abdominal ultrasound INDICATION: Possible cirrhosis of the liver. COMPARISON: CT Abdomen/pelvis 07-19-2019. TECHNIQUE: Transverse and longitudinal images of the right upper quadrant abdomen were obtained FINDINGS: Liver: Size: 18 cm in the right midclavicular line, normal Appearance: Increased echogenicity, smooth contour. Mass: No focal masses Gallbladder: Status post cholecystectomy. Bile Ducts: Intrahepatic Ducts: No dilatation Extrahepatic Ducts: Common bile duct measures 0.4 cm, no dilatation Pancreas: Partially visualized portions are unremarkable. Kidney: The right kidney measures 13.2 cm without evidence of hydronephrosis or stone. Numerous cysts, the majority of which appear simple and others are too small to characterize. Other cysts demonstrate echogenic foci at the wall. Vessels: Aorta: Visualized portions are normal Inferior Vena Cava: Visualized portions are normal Main Portal Vein: 1.4 cm, normal size with hepatopetal flow. Free Fluid: Trace right upper quadrant ascites. IMPRESSION: No sonographic evidence of cirrhosis as clinically queried. Hepatomegaly and hepatic steatosis. Polycystic right kidney, some of which appear minimally complex. Follow-up nonemergent renal protocol CT or MRI is suggested. Signed by: Dr. Dane Ayoub MD on 07/21/2019 12:29 PM
[2019-07-21] MEDS ORDERED: PROPOFOL IV EMULSION 10 MG/ML 20 ML VIAL ONE (14:15)
--- NOTE | 2019-07-21 21:11 | Discharge Summary ---
ADMISSION DIAGNOSES: 1. Anemia. 2. Possible gastrointestinal bleed. 3. End-stage renal disease. 4. Type 2 diabetes with end-stage renal disease. 5. Hypertension with end-stage renal disease. 6. Insomnia. 7. Abdominal pain. DISCHARGE DIAGNOSES: 1. Anemia. 2. Possible gastrointestinal bleed. 3. End-stage renal disease. 4. Type 2 diabetes with end-stage renal disease. 5. Hypertension with end-stage renal disease. 6. Insomnia. 7. Abdominal pain. 8. Rule out gastrointestinal bleed. 9. Anemia of chronic disease secondary to end-stage renal disease. 10. Gastritis. HISTORY: End-stage renal disease with dialysis at home on Tuesday, Tuesday, , and Tuesday, hypertension, insomnia, type 2 diabetes. SURGICAL HISTORY: Left eye surgery, left AV fistula placement, right inguinal hernia repair, right [id number] amputation. FAMILY HISTORY: The patient's mother has diabetes. The patient's grandmother had cancer. The patient's father had a stroke. SOCIAL HISTORY: Noncontributory. HOSPITAL COURSE: A 59-year-old male, admits with complaints of intermittent, sharp pelvic pain and intermittent diarrhea for years. He says his stools have been dark for years. He denies nausea, vomiting, and bright red blood per rectum. He mainly came to the ER because his hemoglobin was low in his primary care office and they said maybe he needed an EGD and colonoscopy. On admission, hemoglobin was 8.5. GI bleed scan was done, which was negative. CT of the abdomen and pelvis showed no evidence of obstruction or significant colitis, polycystic kidney. Stool for blood was negative. The patient received 2 units of blood with dialysis. Coronavirus negative. Hepatitis panel negative. The patient was taken for an EGD and was found to have gastritis. An ultrasound of the abdomen was done, which showed no evidence of cirrhosis, hepatomegaly and hepatic steatosis. The patient is tolerating diet and his hemoglobin is stable. He will be discharged home and follow up with primary care in 1 to 2 weeks. The patient understands discharge instructions and agrees to plan. Dictated by Anu Daugherty NP Aric Carmona MD [facility]/MODL /[id number]
== END 2019-07-21 17:12 | disposition home or self-care (01) | DRG 391 ==
LOC: ER 08:35 → ERHOLD 11:04 → MED/SURG3 13:43
PROVIDERS: ADMIT Internal Medicine; ATTEND Internal Medicine
PROC: 5A1D70Z Performance of Urinary Filtration, Intermittent, Less than 6 Hours Per Day (ICD-10-PCS; 2019-07-20)
PROC: 30233N1 Transfusion of Nonautologous Red Blood Cells into Peripheral Vein, Percutaneous Approach (ICD-10-PCS; 2019-07-20)
PROC: 0DBN8ZX Excision of Sigmoid Colon, Via Natural or Artificial Opening Endoscopic, Diagnostic (ICD-10-PCS; 2019-07-21)
PROC: 0DB98ZX Excision of Duodenum, Via Natural or Artificial Opening Endoscopic, Diagnostic (ICD-10-PCS; principal; 2019-07-21 09:15)
PROC: 0DB68ZX Excision of Stomach, Via Natural or Artificial Opening Endoscopic, Diagnostic (ICD-10-PCS; 2019-07-21 09:15)
DX: K29.70 Gastritis, unspecified, without bleeding (principal); N18.6 End stage renal disease; K51.511 Left sided colitis with rectal bleeding; I12.0 Hypertensive chronic kidney disease with stage 5 chronic kidney disease or end stage renal disease; D64.9 Anemia, unspecified; E11.22 Type 2 diabetes mellitus with diabetic chronic kidney disease; Z99.2 Dependence on renal dialysis; G47.00 Insomnia, unspecified; Z89.511 Acquired absence of right leg below knee; Z83.3 Family history of diabetes mellitus; Z82.3 Family history of stroke; Z80.9 Family history of malignant neoplasm, unspecified; I25.10 Atherosclerotic heart disease of native coronary artery without angina pectoris; Z91.81 History of falling; K20.9 Esophagitis, unspecified; K63.5 Polyp of colon; K64.8 Other hemorrhoids; D63.1 Anemia in chronic kidney disease; Z79.4 Long term (current) use of insulin
CPT/HCPCS: 36415; 43239; 45385; 74176; 76705; 78278; 80053; 82270; 82550; 82553; 82607; 82728; 82746; 82948; 83036; 83540; 84443; 84466; 84484; 85025; 85045; 85610; 86704; 86705; 86706; 86850; 86900; 86920; 87340; 87635; 88305; 88312; 99284; A9512; J2405; J7030; J7799; P9016

== ENCOUNTER 2019-08-01 09:29 | Emergency (ER) | payer MEDICARE, OTHER ==
[~2019-08-01] VITALS: Ht 162.6 cm; Wt 77.1 kg
[~2019-08-01 09:29] MED LIST changes: +BYSTOLIC10 MG PO; +FEROCON CAPSUL1 EACH PO; +PANTOPRAZOLE SO40 MG PO; +XARELTO20 MG PO
[2019-08-01] MEDS ORDERED: MORPHINE SULFATE 2 MG/ML SYR 1ML IV STA (09:52)
[2019-08-01] MEDS ORDERED: ONDANSETRON HCL INJ 2MG/ML 2ML 2 MG/ML VIAL IV STA (09:52)
[2019-08-01] MEDS ORDERED: PANTOPRAZOLE 40 MG 10ML VIAL IV ONE (10:30)
--- NOTE | 2019-08-01 11:03 | NUR ---
REC'D PT IN RM 3 WITH C/O ABD. PAIN. LIMB ALERT BAND TO LEFT ARM. 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 ABLE TO MAKE NEEDS KNOWN AND RATES ABD. PAIN 10
[2019-08-01 11:36] LABS: BASOPHILS # (AUTO) 0.1 (0.0-0.1); BASOPHILS % 1.2 % (0.0-1.0); EOSINOPHILS # (AUTO) 0.2 (0.0-0.4); EOSINOPHILS % 3.5 % (0.0-6.0); HEMATOCRIT 29.9 % (38.2-49.6); HEMOGLOBIN 9.4 g/dL (14.0-18.0); LYMPHOCYTES # (AUTO) 0.6 (1.0-3.2); LYMPHOCYTES % 11.4 % (18.0-39.1); MEAN CORPUSCULAR HEMOGLOBIN 30.3 pg (28-32); MEAN CORPUSCULAR HGB CONC 31.4 g/dL (31-35); MEAN CORPUSCULAR VOLUME 96.5 fL (81-99); MONOCYTES # (AUTO) 0.8 (0.2-0.8); MONOCYTES % 15.6 % (4.4-11.3); NEUTROPHILS # (AUTO) 3.3 (2.1-6.9); NEUTROPHILS % 67.9 % (38.7-80.0); PLATELET COUNT 178 x10e3/uL (140-360); RED CELL DISTRIBUTION WIDTH 16.6 % (11.7-14.4)
[2019-08-01 11:52] LABS: INR 1.89; PROTHROMBIN TIME 23.1 seconds (11.9-14.5)
[2019-08-01 11:53] LABS: PARTIAL THROMBOPLASTIN TIME 46.5 seconds (23.8-35.5)
[2019-08-01 12:01] LABS: ALBUMIN 3.6 g/dL (3.5-5.0); ALBUMIN/GLOBULIN RATIO 0.9 (0.8-2.0); ANION GAP 21.7 mmol/L (8-16); CALCIUM 9.5 mg/dL (8.4-10.2); CREATININE, SERUM 9.05 mg/dL (0.72-1.25); MAGNESIUM 2.6 MG/DL (1.3-2.1); POTASSIUM 4.7 mmol/L (3.5-5.1)
--- NOTE | 2019-08-01 12:06 | Emergency Department Note ---
History of Present Illnes History of Present Illness Chief Complaint: Abdominal Complaints History of Present Illness This is a 59 year old male HERE FOR LOWER ABDOMINAL PAIN FOR ABOUT 2 TO 3 DAYS WITH NAUSEA AND VOMITING, DENIES FEVER, SHORTNESS OF BREATH, DIARRHEA. Historian: Patient Arrival Mode: Car Onset (how long ago): day(s) (2) Location: LOWER ABD Quality: PAIN Radiation: Reports non-radiation Severity: moderate Timing of current episode: constant Progression: worsening Chronicity: new Context: Reports recent illness Relieving factors: none Exacerbating factors: none Associated symptoms: Reports denies other symptoms Past Medical/Family History Physician Review I have reviewed the patient's past medical and family history. Any updates have been documented here. Past Medical History Recent Fever: No Clinical Suspicion of Infectio: No New/Unexplained Change in Ment: No Past Medical History: Hypertension, Diabetes, CAD, Hemodyalisis Other Surgery: RIGHT BKA Social History Smoking Cessation: Never Smoker Counseling Performed: No Alcohol Use: None Any Illegal Drug Use: No TB Exposure/Symptoms: No Physically hurt or threatened: No Other Last Tetanus: UNKNOWN Any Pre-Existing Lines (PICC,: Yes (DIALYSIS) Is patient up to date on immun: Yes Last Flu: UTD Last Pneumovax: UTD Review of Systems Review of Systems Constitutional: Reports no symptoms EENTM: Reports no symptoms Cardiovascular: Reports no symptoms Respiratory: Reports no symptoms Gastrointestinal: Reports as per HPI Genitourinary: Reports no symptoms Musculoskeletal: Reports no symptoms Integumentary: Reports no symptoms Neurological: Reports no symptoms Psychological: Reports no symptoms Endocrine: Reports no symptoms Hematological/Lymphatic: Reports no symptoms Physical Exam Related Data Allergies: Coded Allergies: No Known Allergies (Unverified , 07/30/11) Triage Vital Signs Vital Signs Date Time Temp Pulse Resp B/P (MAP) Pulse Ox O2 Delivery O2 Flow Rate FiO2 08/01/19 09:47 97.4 67 16 165/84 96 Physical Exam CONSTITUTIONAL Constitutional: Present well-developed, Present well-nourished HENT HENT: Present normocephalic, Present atraumatic, Present oropharynx clear/moist, Present nose normal HENT L/R: Present left ext ear normal, Present right ext ear normal EYES Eyes: Reports PERRL, Reports conjunctivae normal NECK Neck: Present ROM normal PULMONARY Pulmonary: Present effort normal, Present breath sounds normal CARDIOVASCULAR Cardiovascular: Present regular rhythm, Present heart sounds normal, Present capillary refill normal, Present normal rate GASTROINTESTINAL Abdominal: Present soft, Present tender (MODERATE TENDERNESS SUPRAPUBIC AND MOHIT AT LQ'S, NO R/G) GENITOURINARY Genitourinary: Present exam deferred SKIN Skin: Present warm, Present dry MUSCULOSKELETAL Musculoskeletal: Present ROM normal NEUROLOGICAL Neurological: Present alert, Present oriented x 3, Present no gross motor or sensory deficits PSYCHOLOGICAL Psychological: Present mood/affect normal, Present judgement normal Results Laboratory Result Diagram: 08/01/19 1120 08/01/19 1120 Laboratory Laboratory Tests Test 08/01/19 11:20 White Blood Count 4.82 x10e3/uL (4.8-10.8) Red Blood Count 3.10 x10e6/uL (4.3-5.7) Hemoglobin 9.4 g/dL (14.0-18.0) Hematocrit 29.9 % (38.2-49.6) Mean Corpuscular Volume 96.5 fL (81-99) Mean Corpuscular Hemoglobin 30.3 pg (28-32) Mean Corpuscular Hemoglobin Concent 31.4 g/dL (31-35) Red Cell Distribution Width 16.6 % (11.7-14.4) Platelet Count 178 x10e3/uL (140-360) Neutrophils (%) (Auto) 67.9 % (38.7-80.0) Lymphocytes (%) (Auto) 11.4 % (18.0-39.1) Monocytes (%) (Auto) 15.6 % (4.4-11.3) Eosinophils (%) (Auto) 3.5 % (0.0-6.0) Basophils (%) (Auto) 1.2 % (0.0-1.0) Neutrophils # (Auto) 3.3 (2.1-6.9) Lymphocytes # (Auto) 0.6 (1.0-3.2) Monocytes # (Auto) 0.8 (0.2-0.8) Eosinophils # (Auto) 0.2 (0.0-0.4) Basophils # (Auto) 0.1 (0.0-0.1) Absolute Immature Granulocyte (auto 0.02 x10e3/uL (0-0.1) Prothrombin Time 23.1 seconds (11.9-14.5) Prothromb Time International Ratio 1.89 Activated Partial Thromboplast Time 46.5 seconds (23.8-35.5) Sodium Level 137 mmol/L (136-145) Potassium Level 4.7 mmol/L (3.5-5.1) Chloride Level 94 mmol/L (98-107) Carbon Dioxide Level 26 mmol/L (22-29) Anion Gap 21.7 mmol/L (8-16) Blood Urea Nitrogen 57 mg/dL (7-26) Creatinine 9.05 mg/dL (0.72-1.25) Estimat Glomerular Filtration Rate 7 ML/MIN (60-) BUN/Creatinine Ratio 6 (6-25) Glucose Level 74 mg/dL (74-118) Calcium Level 9.5 mg/dL (8.4-10.2) Magnesium Level 2.6 MG/DL (1.3-2.1) Aspartate Amino Transf (AST/SGOT) 22 IU/L (5-34) Alanine Aminotransferase (ALT/SGPT) 15 IU/L (0-55) Alkaline Phosphatase 112 IU/L (40-150) Creatine Kinase 163 IU/L (30-200) Total Protein 7.6 g/dL (6.5-8.1) Albumin 3.6 g/dL (3.5-5.0) Globulin 4.0 g/dL (2.3-3.5) Albumin/Globulin Ratio 0.9 (0.8-2.0) Amylase Level 68 U/L (25-125) Lipase 7 U/L (8-78) Lab results reviewed: Yes Laboratory comments CHRONIC ANEMIA (STABLE SINCE LAST ADMISSION) AND CHRONIC ESRD Imaging Imaging results reviewed: Yes Impressions Procedure: [id number] DX/HAND 3+ VIEWS LEFT Exam Date: 08/01/19 Exam Time: 1218 REPORT STATUS: Signed TECHNIQUE: 3 views of left hand HISTORY: ^ABD PAIN ^[id number] ^1218. COMPARISON: None. IMPRESSION: No acute displaced fracture or dislocation. Possible old posttraumatic deformity at the base of the fifth metacarpal. Joint spaces are within normal limits. Vascular calcifications. Signed by: Moises Ascencio MD on 08/01/2019 12:48 PM Procedure: [id number] DX/CHEST SINGLE (PORTABLE) Exam Date: 08/01/19 Exam Time: 1218 REPORT STATUS: Signed TECHNIQUE: Frontal view of the chest. INDICATION: ^ABD PAIN ^[id number] ^1218 COMPARISON: None IMPRESSION: Lines and hardware: Partially fractured left subclavian stent. Heart and mediastinum: Cardiomegaly. Lungs and pleura: No focal airspace consolidation. No pleural effusion. No pneumothorax. Soft tissues and bones: No acute abnormality. Signed by: Moises Ascencio MD on 08/01/2019 12:47 PM Procedure: [id number] CT/CT ABDOMEN/PELVIS W Exam Date: 08/01/19 Exam Time: 113 REPORT STATUS: Signed EXAM: CT of the abdomen and pelvis with intravenous contrast HISTORY: ^ABD PAIN, N/V (ESRD ON HD) ^[id number] ^1130 COMPARISON: Ultrasound abdomen 07/21/2019, CT abdomen and pelvis 07/19/2019 TECHNIQUE: Abdomen and pelvis were scanned utilizing a multidetector helical scanner. Coronal and sagittal reformations were obtained. Scan was performed during the portal venous phase. DOSE REDUCTION: The examination was performed according to the departmental dose-optimization program, which includes automated exposure control, adjustment of the mA and/or kV according to patient size and/or use of iterative reconstruction technique. IMPRESSION: 1. No acute intra-abdominal abnormality. 2. Unchanged compared to the prior study on 07/19/2019. Please see report for further details. Signed by: Moises Ascencio MD on 08/01/2019 12:42 PM Assessment & Plan Medical Decision Making MDM LOWER ABD PAIN - CHECK CBC, CHEM'S, PT/PTT, CT ABD/PELVIS (NOTE: PT IS ESRD ON HD AND MAKES NO URINE SO NO UA) - R/O ANEMIA, ELECTROLYTE ABNL, DIVERTICULITIS, APPENDICITIS, BOWEL OBSTR Reassessment Reassessment IMPROVED, DC HOME WITH BENTYL AND ZOFRAN ODT Assessment & Plan Final Impression: (1) Abdominal pain (2) Nausea Depart Disposition: HOME, SELF-CARE Last Vital Signs Date Time Temp Pulse Resp B/P (MAP) Pulse Ox O2 Delivery O2 Flow Rate FiO2 08/01/19 11:03 98.1 65 16 149/70 100 Home Meds Active Scripts Pantoprazole Sodium* (PROTONIX) 40 Mg Tablet., 40 MG PO ACB for 30 Days, TAB Prov:CHEMA VALENTIN [employer] 07/21/19 Fe Fumarate/Vit C/B12-If/Fa (FEROCON CAPSULE) 1 Each Capsule, 1 EA PO Q12HR for 30 Days Prov:CHEMA VALENTIN Karena [employer] 07/21/19 Reported Medications Rivaroxaban (XARELTO) 20 Mg Tablet, MG PO DAILY 07/20/19 Nebivolol Hcl (BYSTOLIC) 10 Mg Tablet, 20 MG PO BID, TAB 07/20/19 Insulin Aspart (NOVOLOG MIX 70-30 VIAL) 100 Units/Ml Ml, SQ PRN PRN for HIGH BLOOD SUGAR 03/07/15 Tramadol Hcl* (ULTRAM 50MG*) 50 Mg Tab, 50 MG PO TID, TAB 03/07/15 Mupirocin (MUPIROCIN) 22 Gm Oint...g., 22 GM TOP DAILY, EACH 03/07/15 Insulin Glargine (Lantus 3ML Pen) 100 Units/1 Ml Inj, 22 UNITS SQ BEDTIME 07/30/11 Minoxidil (Minoxidil) 10 Mg Tablet, 10 MG PO TID 07/30/11 Medications in the ED Pantoprazole Sodium 40 mg ONCE ONCE IV Last administered on 08/01/19at 11:30; Admin Dose 40 MG; Start 08/01/19 at 10:30; Stop 08/01/19 at 10:31; Status DC Morphine Sulfate 4 mg ONCE STAT IV Last administered on 08/01/19at 11:30; Admin Dose 4 MG; Start 08/01/19 at 09:52; Stop 08/01/19 at 09:59; Status DC Ondansetron HCl 4 mg ONCE STAT IV Last administered on 08/01/19at 11:30; Admin Dose 4 MG; Start 08/01/19 at 09:52; Stop 08/01/19 at 09:59; Status DC NALLELY DOZIER MD Aug 01, 2019 12:06
[2019-08-01 12:08] LABS: CREATINE KINASE MB 2.4 ng/mL (0-5.0)
--- NOTE | 2019-08-01 12:45 | Diagnostic Imaging Report ---
EXAM: CT of the abdomen and pelvis with intravenous contrast HISTORY: ^ABD PAIN, N/V (ESRD ON HD) ^[id number] ^1130 COMPARISON: Ultrasound abdomen 07/21/2019, CT abdomen and pelvis 07/19/2019 TECHNIQUE: Abdomen and pelvis were scanned utilizing a multidetector helical scanner. Coronal and sagittal reformations were obtained. Scan was performed during the portal venous phase. DOSE REDUCTION: The examination was performed according to the departmental dose-optimization program, which includes automated exposure control, adjustment of the mA and/or kV according to patient size and/or use of iterative reconstruction technique. IMPRESSION: 1. No acute intra-abdominal abnormality. 2. Unchanged compared to the prior study on 07/19/2019. Please see report for further details. Signed by: Moises Ascencio MD on 08/01/2019 12:42 PM
--- NOTE | 2019-08-01 12:50 | Diagnostic Imaging Report ---
TECHNIQUE: Frontal view of the chest. INDICATION: ^ABD PAIN ^[id number] ^1218 COMPARISON: None IMPRESSION: Lines and hardware: Partially fractured left subclavian stent. Heart and mediastinum: Cardiomegaly. Lungs and pleura: No focal airspace consolidation. No pleural effusion. No pneumothorax. Soft tissues and bones: No acute abnormality. Signed by: Moises Ascencio MD on 08/01/2019 12:47 PM
--- NOTE | 2019-08-01 12:52 | Diagnostic Imaging Report ---
TECHNIQUE: 3 views of left hand HISTORY: ^ABD PAIN ^[id number] ^8. COMPARISON: None. IMPRESSION: No acute displaced fracture or dislocation. Possible old posttraumatic deformity at the base of the fifth metacarpal. Joint spaces are within normal limits. Vascular calcifications. Signed by: Moises Ascencio MD on 08/01/2019 12:48 PM
[2019-08-01] MEDS ORDERED: SODIUM CHLORIDE 0.9% 50ML 50 ML ONE (13:23)
[2019-08-01] MEDS ORDERED: IOPAMIDOL 370 MG/ML 200 ML INFUS..BTL INJ ONE (13:23)
== END 2019-08-01 15:06 | disposition home or self-care (01) ==
LOC: ER 09:29
DX: R10.30 Lower abdominal pain, unspecified (principal); R11.2 Nausea with vomiting, unspecified; I12.0 Hypertensive chronic kidney disease with stage 5 chronic kidney disease or end stage renal disease; E11.22 Type 2 diabetes mellitus with diabetic chronic kidney disease; N18.6 End stage renal disease; Z99.2 Dependence on renal dialysis; Z79.4 Long term (current) use of insulin
CPT/HCPCS: 36415; 71045; 73130; 74177; 80053; 82150; 82550; 82553; 82948; 83690; 83735; 84484; 85025; 85610; 85730; 93005; 99284; C9113; J2270; J2405; Q9967

== ENCOUNTER 2020-03-26 11:59 | Emergency (ER) | payer MEDICARE ==
[~2020-03-26] VITALS: Ht 190.5 cm; Wt 99.8 kg
[2020-03-26 12:40] LABS: BASOPHILS # (AUTO) 0.1 (0.0-0.1); BASOPHILS % 1.8 % (0.0-1.0); EOSINOPHILS # (AUTO) 0.2 (0.0-0.4); EOSINOPHILS % 5.8 % (0.0-6.0); HEMATOCRIT 31.8 % (38.2-49.6); LYMPHOCYTES # (AUTO) 0.6 (1.0-3.2); LYMPHOCYTES % 18.6 % (18.0-39.1); MEAN CORPUSCULAR HEMOGLOBIN 29.8 pg (28-32); MEAN CORPUSCULAR HGB CONC 31.4 g/dL (31-35); MEAN CORPUSCULAR VOLUME 94.6 fL (81-99); MONOCYTES # (AUTO) 0.5 (0.2-0.8); MONOCYTES % 16.2 % (4.4-11.3); NEUTROPHILS # (AUTO) 1.9 (2.1-6.9); NEUTROPHILS % 57.3 % (38.7-80.0); PLATELET COUNT 108 x10e3/uL (140-360); RED BLOOD COUNT 3.36 x10e6/uL (4.3-5.7); RED CELL DISTRIBUTION WIDTH 17.2 % (11.7-14.4)
[2020-03-26 13:15] VITALS: BP 160/88
== END 2020-03-26 13:19 | disposition home or self-care (01) ==
LOC: ER 12:19
DX: K62.5 Hemorrhage of anus and rectum (principal); I10 Essential (primary) hypertension; E11.9 Type 2 diabetes mellitus without complications; I25.10 Atherosclerotic heart disease of native coronary artery without angina pectoris; Z79.4 Long term (current) use of insulin; Z79.02 Long term (current) use of antithrombotics/antiplatelets; Z89.511 Acquired absence of right leg below knee
CPT/HCPCS: 36415; 85025; 99283

== ENCOUNTER 2022-01-06 09:51 | Emergency (ER) | payer MEDICARE ==
[~2022-01-06] VITALS: Ht 190.5 cm; Wt 99.8 kg
[2022-01-06] MEDS ORDERED: KETOROLAC TROMETHAMINE 30 MG/ML VIAL IM STA (10:11)
[2022-01-06] MEDS ORDERED: HYDROCODONE/APAP 5MG-325MG TAB PO ONE (10:15)
[2022-01-06] MEDS ORDERED: NAPROXEN250 MG PO (12:04)
== END 2022-01-06 12:50 | disposition home or self-care (01) ==
LOC: ER 10:01
DX: M25.511 Pain in right shoulder (principal); I25.10 Atherosclerotic heart disease of native coronary artery without angina pectoris; E11.22 Type 2 diabetes mellitus with diabetic chronic kidney disease; I12.0 Hypertensive chronic kidney disease with stage 5 chronic kidney disease or end stage renal disease; N18.6 End stage renal disease; Z99.2 Dependence on renal dialysis; Z79.02 Long term (current) use of antithrombotics/antiplatelets; Z79.4 Long term (current) use of insulin; Z79.899 Other long term (current) drug therapy; Z89.511 Acquired absence of right leg below knee
CPT/HCPCS: 71046; 73030; 99283; J1885